=== PATIENT | male | born 1995 | race African-American/Black ===

== ENCOUNTER 2016-11-28 08:25 | Emergency (ER) | payer OTHER ==
--- NOTE | ~2016-11-28 | CR63 ---
[facility] A Service of [facility] RADIOLOGY TEXT RESULTS PATIENT: EDUARDO HOFF LOCATION: [facility] : [birth year] UNIT #: [id number] AGE: [address]: Livia Cao APRN SEX: M ORDER DR: [id number] [facility] [address] [place], [place] [address] [id number] E MR#: [id number] Acc #: [id number] NAME: EDUARDO HOFF : 1995 SEX: M STUDY DATE/TIME: 11/28/2016 8:56 UNIT: [facility] ROOM: STUDY DESCRIPTION: CR Chest 2 View Attending Physician: Livia Cao A.P.R.N. Ordering Physician: Ed Doctor [id number] [facility] Primary Care Physician: Primary Care Physician No MEDICAL IMAGING REPORT This report is preliminary unless electronic signature is present EXAM Chest x-ray, 11/28 HISTORY Productive cough and shortness of air for three days. FINDINGS PA and lateral examination of the chest upright shows a good expansion of the parenchyma with a normal distribution of the pulmonary vascularity. There is no indication of congestion, effusion, infiltrate, tumor, or nodular density. The pleural reflections and diaphragmatic contours are normal. The cardiac silhouette and mediastinal anatomy is within normal limits. IMPRESSION Normal chest. Dictated by... Simón Frias Jr., M.D. THIS IS AN ELECTRONICALLY VERIFIED REPORT Simón Frias Jr., M.D. at 11/29/2016 7:05 AM LINUS/taylor TD: 11/28/2016 12:20 JOB #: [id number] MEDICAL IMAGING REPORT Page 1 of 1 COPY
[~2016-11-28 08:25] MED LIST: FLONASE16 GM; IBUPROFEN PO; ZITHROMAX PO
== END 2016-11-28 11:49 | disposition home or self-care (01) ==
LOC: CFTX 08:25 → CED 08:25 → CFTX 08:55
DX: J20.9 Acute bronchitis, unspecified (principal); F17.200 Nicotine dependence, unspecified, uncomplicated; Z91.013 Allergy to seafood
CPT/HCPCS: 71020; 94640; 99283